=== PATIENT | female | born 1965 | race Two or more races ===

== ENCOUNTER 2021-12-15 12:13 | Emergency (ER) | payer OTHER ==
[~2021-12-15] VITALS: Ht 162.6 cm; Wt 61.2 kg
[2021-12-15] MEDS ORDERED: MIRTAZAPINE30 M1 (12:28)
[2021-12-15] MEDS ORDERED: ESCITALOPRA5 MG/5 ML PO (12:28)
[2021-12-15] MEDS ORDERED: BUPROPION HCL200 M1 (12:29)
[2021-12-15] MEDS ORDERED: CONTRAVE ER 8-1 EACH PO (12:29)
== END 2021-12-15 16:14 | disposition home or self-care (01) ==
LOC: ER 12:13
DX: H02.401 Unspecified ptosis of right eyelid (principal); H16.001 Unspecified corneal ulcer, right eye